=== PATIENT | male | born 1955 | race Caucasian/White ===

== ENCOUNTER → 2017-09-03 | Outpatient (CLI) | payer OTHER | END | disposition home or self-care (01) | LOC: CFH 09:25 | PROVIDERS: ATTEND Family Medicine | DX: M19.011 Primary osteoarthritis, right shoulder (principal); S46.011A Strain of muscle(s) and tendon(s) of the rotator cuff of right shoulder, initial encounter; M62.58 Muscle wasting and atrophy, not elsewhere classified, other site; X58.XXXA Exposure to other specified factors, initial encounter; Y93.89 Activity, other specified; Y92.89 Other specified places as the place of occurrence of the external cause; Y99.8 Other external cause status ==

== ENCOUNTER 2017-11-12 07:32 | Day surgery (SDC) | payer OTHER ==
[~2017-11-12] VITALS: Ht 172.7 cm; Wt 92.2 kg
[~2017-11-12 07:32] MED LIST: BUPIVACAINE/PF 0.5% ONE; EPINEPHRINE 1 MG/ML, 1ML ONE; FENTANYL PF 250 MCG/5ML ONE; LIDOCAINE 1%, 50ML ONE; MIDAZOLAM 1 MG/ML, 2ML ONE
[2017-11-12 07:57] VITALS: BP 124/75
[2017-11-12] MEDS ORDERED: none per pt (07:57)
[2017-11-12 08:02] VITALS: BP 124/75
[2017-11-12] MEDS ORDERED: LACTATED RINGERS 1,000 ML IV SCH (08:17)
[2017-11-12] MEDS ORDERED: SUCCINYLCHOLINE 20 MG/ML, 10ML ONE (09:01)
[2017-11-12] MEDS ORDERED: EPHEDRINE 50 MG/ML, 1ML ONE (09:01)
[2017-11-12] MEDS ORDERED: ROCURONIUM 10 MG/ML,10ML ONE (09:01)
[2017-11-12] MEDS ORDERED: DEXAMETHASONE 4 MG/ML, 1ML ONE (09:01)
[2017-11-12] MEDS ORDERED: PHENYLEPHRINE 10 MG/ML ONE (09:01)
[2017-11-12] MEDS ORDERED: CEFAZOLIN 1,000 MG ONE (09:01)
[2017-11-12] MEDS ORDERED: ONDANSETRON 2MG/ML, 2ML ONE (09:01)
[2017-11-12] MEDS ORDERED: PROPOFOL 10 MG/ML, 20ML ONE (09:01)
[2017-11-12] MEDS ORDERED: MEPERIDINE/PF 25MG/0.5ML IVPush PRN (09:30)
[2017-11-12] MEDS ORDERED: HYDROmorphone 1 MG/ML, 1ML IV PRN (09:30)
[2017-11-12] MEDS ORDERED: PROMETHAZINE 12.5 MG SUPP PR PRN (09:30)
[2017-11-12] MEDS ORDERED: ALBUTEROL SULFATE 2.5 MG/3 ML NPPB PRN (09:30)
[2017-11-12] MEDS ORDERED: ACETAMINOPHEN 325 MG TABLET PO PRN (09:30)
[2017-11-12] MEDS ORDERED: LORazepam 2 MG/ML, 1ML IVPush PRN (09:30)
[2017-11-12] MEDS ORDERED: METOPROLOL 1 MG/ML, 5ML IV PRN (09:30)
[2017-11-12] MEDS ORDERED: FENTANYL PF 100 MCG/2ML IV PRN (09:30)
[2017-11-12] MEDS ORDERED: OXYcodone 5 MG/5 ML ORAL.SOL UDC PO PRN (09:30)
[2017-11-12] MEDS ORDERED: hydrALAzine 20 MG/ML, 1ML IV PRN (09:30)
[2017-11-12] MEDS ORDERED: EPINEPHRINE TOPICAL SOLN 1 MG/ML, 30ML ONE (09:52)
[2017-11-12] MEDS ORDERED: EPINEPHRINE 1 MG/ML, 1ML ONE (09:53)
== END 2017-11-12 13:10 ==
LOC: OUT 07:32
PROVIDERS: ATTEND Orthopaedic Surgery
DX: S43.432A Superior glenoid labrum lesion of left shoulder, initial encounter (principal); M75.111 Incomplete rotator cuff tear or rupture of right shoulder, not specified as traumatic; M24.111 Other articular cartilage disorders, right shoulder; M75.41 Impingement syndrome of right shoulder; M19.011 Primary osteoarthritis, right shoulder; M65.811 Other synovitis and tenosynovitis, right shoulder; X58.XXXA Exposure to other specified factors, initial encounter; Y93.89 Activity, other specified; Y92.89 Other specified places as the place of occurrence of the external cause; Y99.8 Other external cause status; Z87.891 Personal history of nicotine dependence
CPT/HCPCS: 29822; 29826; 29827; 29828; 93005; C1713; J0171; J0330; J0690; J1100; J2250; J2370; J2405; J2704; J3010; J3490; J7120